=== PATIENT | male | born 1975 | race Caucasian/White ===

== ENCOUNTER 2018-02-04 17:26 | Emergency (ER) | payer OTHER ==
[2018-02-04] MEDS ORDERED: KETOROLAC TROMETHAMINE INJ/PF 30 MG/1 ML SDV IV ONE (17:51)
--- NOTE | 2018-02-04 18:30 | RADIOLOGY REPORT (SQ) ---
EXAM DESCRIPTION: ANKLE RIGHT COMPLETE COMPLETED DATE/TIME: 02/04/2018 6:11 pm REASON FOR STUDY: ankle injury, pain, swelling COMPARISON: None. NUMBER OF VIEWS: Three views. TECHNIQUE: AP, lateral, and oblique radiographic images acquired of the right ankle. LIMITATIONS: None. FINDINGS: MINERALIZATION: Normal. BONES: No acute fracture or dislocation. No worrisome bone lesions. JOINTS: No effusions. SOFT TISSUES: Trace swelling overlies the lateral malleolus. OTHER: No other significant finding. IMPRESSION: Trace swelling overlies the lateral malleolus without underlying osseous injury. TECHNICAL DOCUMENTATION: JOB ID: [id number] [employer]- All Rights Reserved Reading location - IP/workstation name: [email or web address]
--- NOTE | 2018-02-04 18:52 | ER Document Report ---
ED Extremity Problem, Lower - General Chief Complaint: Ankle Pain Stated Complaint: ANKLE PAIN Time Seen by Provider: 02/04/18 17:45 Mode of Arrival: Medic Information source: Patient Notes: Patient is a 42-year-old male who presents to the ER today for right ankle pain after rolling it in a hole outside prior to arrival. Patient states that he does not know which way he may have rolled the ankle but states that he walked on it for at least an hour afterwards as he made a trip to [employer] and purchased some things, noticed that the swelling was getting worse and the pain was getting worse to walk on it. Patient eventually stated that it was unbearable to even bear weight on. He admits to significant amount of swelling. He received pain medication on the ambulance which did not help. He denies feeling any pop or crack.He denies numbness or tingling. TRAVEL OUTSIDE OF THE [place] IN LAST 30 DAYS: No - Related Data Allergies/Adverse Reactions: No Known Allergies Allergy (Unverified 02/04/18 17:29) Past Medical History - General Information source: Patient - Social History Smoking Status: Never Smoker Frequency of alcohol use: Social Drug Abuse: None Family History: Reviewed & Not Pertinent Patient has suicidal ideation: No Patient has homicidal ideation: No - Past Medical History Cardiac Medical History: Reports: Hx Hypertension Renal/ Medical History: Denies: Hx Peritoneal Dialysis Psychiatric Medical History: Reports: Hx Depression - PTSD Past Surgical History: Reports: Hx Orthopedic Surgery - bilateral shoulders, right elbow Review of Systems - Review of Systems Constitutional: No symptoms reported EENT: No symptoms reported Cardiovascular: No symptoms reported Respiratory: No symptoms reported Gastrointestinal: No symptoms reported Genitourinary: No symptoms reported Male Genitourinary: No symptoms reported Musculoskeletal: See HPI Skin: See HPI Hematologic/Lymphatic: No symptoms reported Neurological/Psychological: No symptoms reported Physical Exam - Vital signs Vitals: Temp Pulse Resp BP Pulse Ox 98.6 F 93 18 143/80 H 96 02/04/18 17:37 02/04/18 17:37 02/04/18 17:37 02/04/18 17:37 02/04/18 17:37 - Notes Notes: PHYSICAL EXAMINATION: GENERAL: Well-appearing and in no acute distress. HEAD: Atraumatic, normocephalic. EYES: Pupils equal round and reactive to light, extraocular movements intact, sclera anicteric, conjunctiva are normal. NECK: Normal range of motion, supple without lymphadenopathy LUNGS: CTAB and equal. No wheezes rales or rhonchi. HEART: Regular rate and rhythm without murmurs EXTREMITIES: good pulses bilaterally, good capillary refill of all extremities, Normal range of motion, no pitting edema. No cyanosis. NEUROLOGICAL: Cranial nerves grossly intact. Normal sensory/motor exams. PSYCH: Normal mood, normal affect. SKIN: Warm, Dry, normal turgor, edema noted to the lateral malleolus of the right ankle, tender to palpation, Course - Re-evaluation Re-evalutation: 02/04/18 18:49 X-ray negative for any acute pathology except for swelling of the lateral malleolus. No fracture identified. Patient given crutches and placed in Beau wrap here. - Vital Signs Vital signs: Temp Pulse Resp BP Pulse Ox 98.4 F 87 18 154/93 H 97 02/04/18 19:19 02/04/18 19:19 02/04/18 19:19 02/04/18 19:19 02/04/18 19:19 Discharge - Discharge Clinical Impression: Right ankle sprain Qualifiers: Encounter type: initial encounter Involved ligament of ankle: unspecified ligament Qualified Code(s): S93.401A - Sprain of unspecified ligament of right ankle, initial encounter Condition: Stable Disposition: HOME, SELF-CARE Instructions: Sprained Ankle ([facility]) Additional Instructions: Return immediately for any new or worsening symptoms. Follow up with primary care provider, call tomorrow to make followup appointment. Prescriptions: Ibuprofen [Motrin 800 mg Tablet] 800 mg PO Q8H PRN #30 tab PRN Reason: Forms: Return to Work Referrals: RJ CARBALLO MD [ACTIVE STAFF] - Follow up as needed
[2018-02-04] MEDS ORDERED: HYDROCODONE/ACETAMINOPHEN 5-325 MG (6 TAB/ER DISP) PO PRN (18:59)
[2018-02-04 19:20] VITALS: BP 154/93
== END 2018-02-04 19:20 | disposition home or self-care (01) ==
LOC: ER 17:26
DX: S93.401A Sprain of unspecified ligament of right ankle, initial encounter (principal); X50.0XXA Overexertion from strenuous movement or load, initial encounter; Y99.0 Civilian activity done for income or pay; I10 Essential (primary) hypertension
CPT/HCPCS: 99283; 96374; 73610; J1885

== ENCOUNTER 2020-03-22 23:32 | Emergency (ER) | payer OTHER ==
[2020-03-23] MEDS ORDERED: DEXAMETHASONE SOD PHOS INJ 10 MG/1 ML VIAL IV ONE (02:24)
[2020-03-23] MEDS ORDERED: KETOROLAC TROMETHAMINE INJ/PF 30 MG/1 ML SDV IV ONE (02:24)
[2020-03-23] MEDS ORDERED: LORAZEPAM INJ 2 MG/1 ML VIAL IV ONE (02:25)
--- NOTE | 2020-03-23 02:44 | ER Document Report ---
ED General - General Chief Complaint: Numbness of Arm Stated Complaint: BACK PAIN,NECK PAIN,LEFT ARM PAIN Time Seen by Provider: 03/23/20 02:09 Primary Care Provider: ENZO,MARILOU [Primary Care Provider] - Follow up as needed Notes: 44-year-old male presents to the emergency department complaint of pain in the left upper shoulder and now radiating down into the left arm with pain in tingling in the fingers. States that he awoke approximately 3 days ago with pain that has now worsened. He denies a prior history of similar episodes, there was no preceding trauma. He denies a history of diabetes mellitus or prior injury TRAVEL OUTSIDE OF THE [place] IN LAST 30 DAYS: No - Related Data Allergies/Adverse Reactions: No Known Allergies Allergy (Unverified 02/04/18 17:29) Past Medical History - Social History Smoking Status: Never Smoker Frequency of alcohol use: Occasional Drug Abuse: None Family History: Reviewed & Not Pertinent Patient has homicidal ideation: No - Past Medical History Cardiac Medical History: Reports: Hx Hypertension Renal/ Medical History: Denies: Hx Peritoneal Dialysis Psychiatric Medical History: Reports: Hx Depression - PTSD Past Surgical History: Reports: Hx Orthopedic Surgery - bilateral shoulders, right elbow Review of Systems - Review of Systems Notes: Constitutional: Negative for fever. HENT: + Neck pain Eyes: Negative for visual changes. Cardiovascular: Negative for chest pain. Respiratory: Negative for shortness of breath. Gastrointestinal: Negative for abdominal pain, vomiting or diarrhea. Genitourinary: Negative for dysuria. Musculoskeletal: + Back pain, + right upper extremity pain. Skin: Negative for rash. Neurological: Negative for headaches, weakness or numbness. 10 point ROS negative except as marked above and in HPI. Physical Exam - Vital signs Vitals: Resp Pulse Ox 16 94 03/23/20 01:08 03/23/20 01:08 - Notes Notes: PHYSICAL EXAMINATION: Physical Exam: General: Well-nourished well-developed 44-year-old man distress secondary to pain in the left upper shoulder and left arm. HEENT: NC/AT, pupils equal round and reactive to light, MM moist,nares clear, oropharynx clear, airway patent Neck: supple, no adenopathy, no masses. Good range of motion Lungs: clear, no wheezing, no rales no rhonchi CVS: Regular rate and rhythm no murmur gallop or rub Abdomen: Soft, active, nontender, no masses, no hepatosplenomegaly Ext: + Tenderness in the left scapular and upper trapezius region, tenderness in the left upper arm. Neuro: Alert and responsive, moving all 4 extremities on command, cranial nerves intact, + tingling in the left hand thumb index finger Skin: Intact no open lesions, no rash PSYCH: Normal mood, normal affect. Course - Vital Signs Vital signs: Temp Pulse Resp BP Pulse Ox 98.2 F 77 20 158/105 H 97 03/23/20 02:05 03/23/20 01:12 03/23/20 02:00 03/23/20 01:12 03/23/20 02:00 - Diagnostic Test Radiology reviewed: Image reviewed, Reports reviewed - CT scan cervical spine: Degenerative changes worse at C5-6 with degenerative Discharge - Discharge Clinical Impression: Cervical radiculopathy, Left arm pain Condition: Good Disposition: HOME, SELF-CARE Additional Instructions: You were seen in the emergency department night with pain in the upper left shoulder and left arm, the symptoms appear to be related to a pinched nerve. CT scan of the cervical spine did reveal degenerative changes at cervical spine 56 . He was given prescriptions for pain medication along with muscle relaxant and steroid. If your symptoms are not improving follow-up with your primary care doctor and you may need MRI. HOME CARE INSTRUCTIONS & INFORMATION: Thank you for choosing us for your medical needs. We hope you're satisfied with the care you received. After you leave, you must properly care for your problem and, at the same time, observe its progress. Any condition can change. Some illnesses can change rapidly over hours or days. If your condition worsens, return to the Emergency Department or see your physician promptly. ABOUT YOUR X-RAYS AND EKG'S: If you had an EKG or X-rays taken, they have been read by the Emergency Physician. The X-rays and EKG's will also be read by a Radiologist or Call Center Operator within 24 hours. If discrepancies are noted, you will be notified by telephone. Please be certain the ED has a correct telephone number & address where you can be reached. Also, realize that some fractures or abnormalities do not show up on initial X-rays. If your symptoms continue, see your physician. ABOUT YOUR LABORATORY TEST: If you had laboratory tests, the results have been reviewed by the Emergency Physician. Some test results (for example cultures) may not be available for several days. You will be contacted if any test result shows you need additional treatment. Please be certain the ED has a correct telephone number and address where you can be reached. ABOUT YOUR MEDICATIONS: You will receive instructions on how to take your medicine on the prescription label you receive. Additional information may be provided by the Pharmacy. If you have questions afterwards, call the ED for clarification or further instructions. Some prescribed medications may cause drowsiness. Do not perform tasks such as driving a car or operating machinery without consulting your Pharmacist. If you feel you need a refill of pain medication, your condition will need re-evaluation. Please do not call for a refill of any medication. ABOUT YOUR SIGNATURE: Signature of this document acknowledges to followin. Understanding that you received emergency treatment and that you may be released before al medical problems are known or treated. Please be certain the ED has a correct phone number & address where you can be reached. 2. Acknowledgement that you will arrange for follow-up care as recommended. 3. Authorization for the Emergency Physician to provide information to your follow-up Physician in order to maximize your care. AT ANY TIME, IF YOUR SYMPTOMS CHANGE SIGNIFICANTLY OR WORSEN OR YOU DEVELOP NEW SYMPTOMS, RETURN TO THE EMERGENCY DEPARTMENT IMMEDIATELY FOR RE-EVALUATION. OUR GOAL IS TO PROVIDE EXCELLENT MEDICAL CARE! WE HOPE THAT WE HAVE MET YOUR EXPECTATIONS DURING YOUR EMERGENCY DEPARTMENT VISIT AND THAT YOU FEEL YOU HAVE RECEIVED EXCELLENT CARE! Prescriptions: Prednisone [Deltasone 20 mg Tablet] 1 tab PO BID 5 Days #10 tablet Diclofenac Sodium 75 mg PO BID #30 tablet. Gabapentin [Neurontin 100 mg Capsule] 100 mg PO Q8H PRN #30 capsule PRN Reason: For Pain Referrals: [facility] [Primary Care Provider] - Follow up as needed
[2020-03-23] MEDS ORDERED: HYDROMORPHONE HCL INJ/PF 2 MG/ML AMPULE IV ONE (04:26)
--- NOTE | 2020-03-23 05:42 | RADIOLOGY REPORT (SQ) ---
CT cervical spine without contrast on 03/23/2020 at 3:43 AM CLINICAL INDICATION: Neck pain for three weeks TECHNIQUE: Multiple axial images are obtained throughout the cervical spine without the administration of contrast. Sagittal and coronal reformatted images are also performed and reviewed. This exam was performed according to our departmental dose-optimization program, which includes automated exposure control, adjustment of the mA and/or kV according to patient size and/or use of iterative reconstruction technique. Total DLP is 502.95 mGy*cm. COMPARISON: None FINDINGS: Reformatted images reveal normal alignment of the cervical spine. Degenerative disc disease is noted worse at C5-6. There is no prevertebral soft tissue swelling. There are no acute fracture lines. No definite disc herniation is noted. At the C5-6 level, asymmetric left disc osteophyte complex produces mild left-sided canal stenosis with mild to moderate left foraminal narrowing. No other levels of canal stenosis or foraminal narrowing are noted. IMPRESSION: Degenerative changes worse at C5-6 as above with no acute abnormality.
[2020-03-23] MEDS ORDERED: HYDROCODONE/ACETAMINOPHEN 5-325 MG (6 TAB/ER DISP) PO PRN (06:02)
[2020-03-23 06:17] VITALS: BP 167/75
--- NOTE | 2020-03-23 09:56 | EKG REPORT ---
SEVERITY:- OTHERWISE NORMAL ECG - SINUS RHYTHM LEFT AXIS DEVIATION : Confirmed by: Mick Montiel MD 23-Mar-2020 09:55:16
== END 2020-03-23 06:30 | disposition home or self-care (01) ==
LOC: ER 23:32
DX: M47.22 Other spondylosis with radiculopathy, cervical region (principal); M50.122 Cervical disc disorder at C5-C6 level with radiculopathy; I10 Essential (primary) hypertension
CPT/HCPCS: 93005; 99284; 96374; 96375; 72125; 93010; J1885; J1170; J2060; J1100